=== PATIENT | female | born 1985 | race Caucasian/White ===

== ENCOUNTER 2020-08-30 02:32 | Emergency (ER) | payer MEDICAID ==
[~2020-08-30] VITALS: Ht 162.6 cm; Wt 68.0 kg
--- NOTE | 2020-08-30 03:00 | NUR ---
Patient to ER bed 8 to gown for evaluation. Side rails up.
[2020-08-30 03:01] VITALS: BP_SYST 119
--- NOTE | 2020-08-30 03:04 | NUR ---
Placed in room #8, w/c/o fall injury while playing on the [place] injuring her Right ankle and foot. Rt foot w/ altered CMS, toes cool to touch, foot swollen +2 compared to Left foot w/ noted deformity.Pt appears to be in alot of pain and crying,pain level 10/10. VS done WNL- BP 119/60, P92, rr 18, PO2 100%. Pt denies Med Hx. Afebrile 97.6, denies having or being in contact w/ anyone with COVID 19 s/s. sruthi and pulse oximeter. Side rails up. Pt w/ son / S.O at bedside. Seen / assessed by ED
--- NOTE | 2020-08-30 03:04 | NUR ---
Dr. Carrion bedside for pt eval
[2020-08-30] MEDS: MORPHINE 4 MG INJ. 4 MG/ML VIAL IM ONE (03:15)
[2020-08-30] MEDS: KETOROLAC TROMETHAMINE 60 MG/2 ML VIAL IM ONE (03:27)
[2020-08-30] MEDS ORDERED: IBUP-1969 PO (04:09)
--- NOTE | 2020-08-30 04:34 | NUR ---
Patient given written and verbal discharge instructions and verbalizes understanding. ER MD discussed with patient the results and treatment provided. Patient in stable condition. ID arm band removed. No open wounds, pt w/ a closed injury to Rt foot. Rt foot short leg OCL splint roll in place. Pt verbalized decreased pain level from a 10/10 to a 5/10. Rx of Clune 5/ 325 and Motrin PO given. Patient educated on pain management and to follow up with PMD/ ortho MD. Pain Scale 3/10. Opportunity for questions provided and answered. IM Medication(Toradol/ Motrin) given effective. Crutches given, crutch education given.
--- NOTE | 2020-08-30 04:35 | NUR ---
Pt left the ED w/ spouse and son. NAD noted.
[2020-08-30 04:40] VITALS: BP_SYST 118
== END 2020-08-30 04:40 | disposition home or self-care (01) ==
LOC: SED 02:32
DX: S93.401A Sprain of unspecified ligament of right ankle, initial encounter (principal); S93.601A Unspecified sprain of right foot, initial encounter; Z79.899 Other long term (current) drug therapy; X50.1XXA Overexertion from prolonged static or awkward postures, initial encounter; Y93.89 Activity, other specified; Y92.89 Other specified places as the place of occurrence of the external cause; Y99.8 Other external cause status
CPT/HCPCS: 73610; 73630; 81025; 96372; 99284; J1885; J2270

== ENCOUNTER 2020-09-01 16:29 | Emergency (ER) | payer MEDICAID ==
[~2020-09-01] VITALS: Ht 162.6 cm; Wt 65.8 kg
[~2020-09-01 16:29] MED LIST: IBUP-1969 PO
[2020-09-01 16:54] VITALS: BP_SYST 119
[2020-09-01] MEDS ORDERED: KETOROLAC TROMETHAMINE 60 MG/2 ML VIAL IM ONE (17:15)
[2020-09-01] MEDS ORDERED: HYDR-3917 PO (20:08)
[2020-09-01 20:28] VITALS: BP_SYST 119
== END 2020-09-01 20:28 | disposition home or self-care (01) ==
LOC: SED 16:29
DX: S92.001A Unspecified fracture of right calcaneus, initial encounter for closed fracture (principal); S92.101A Unspecified fracture of right talus, initial encounter for closed fracture; S82.51XA Displaced fracture of medial malleolus of right tibia, initial encounter for closed fracture; Z79.899 Other long term (current) drug therapy; X50.1XXA Overexertion from prolonged static or awkward postures, initial encounter; Y93.89 Activity, other specified; Y92.89 Other specified places as the place of occurrence of the external cause; Y99.8 Other external cause status
CPT/HCPCS: 29515; 73700; 76376; 96372; 99284; J1885